=== PATIENT | female | born 2000 | race Caucasian/White ===

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

== ENCOUNTER 2018-12-31 07:07 | Emergency (ER) | payer OTHER ==
--- OUTSIDE RECORDS SUMMARY | 2018-12-31 07:15 | XMS REPORT | Continuity of Care Document ---
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 Coach Vangie Núñez CSW Care Team Information Trampoline Team Coach [phone] Problems Active Problems Provider Date Migraine without aura, not refractory Elenita Plascencia MD Onset: 11/25/2018 Primary dysmenorrhea Elenita Plascencia MD Onset: 11/25/2018 Social History Type Date Description Comments Sex Unknown ETOH Use Occasionally consumes alcohol Tobacco Use Start: Unknown Patient has never smoked Recreational Drug Use Denies Drug Use Smoking Status Reviewed: 10/27/18 Patient has never smoked Allergies, Adverse Reactions, Alerts Description No Known Drug Allergies Medications Active Medications SIG Qnty Indications Ordering Provider Date Bupropion 1 by mouth every 60tabs F43.23 Elenita Plascencia, 11/03/2018 Hydrochloride ER (XL) day in the MD morning for 1 150mg Tablets ER 24HR week then 2 po daily Naproxen Take 1 Tablet By 60tabs N94.4 Elenita Plascenica, 03/15/2017 500mg Tablets Mouth Twice A MD Day With Food During Menses Cryselle-28 1 by mouth every 3packs Z30.09 Elenita Plascencia, 11/05/2012 0.3-30mg-mcg day MD Tablets History Medications Escitalopram Oxalate 1 by mouth 30tabs F43.23 Elenita Plascencia, 2018 - every day MD 11/03/2018 10mg Tablets Medications Administered in Office Medication SIG Qnty Indications Ordering Provider Date PPD Elenita Plascencia MD 11/25/2018 Injection Immunizations CPT Code Status Date Vaccine Reaction Lot # [id number] Given 10/07/2018 Influenza Virus Vaccine,Quadrivalent,Split,Preserv Free, 0.5mL,Im [address] Given 03/15/2017 Meningococcal B(Bexsero)protn otrMembran [id number] Vesicle Vccn 2 [place] [address] Given 12/07/2016 Influenza Vac, Quadrivalent, Split, 0.5mL [id number] Dosage, Im Use 86071 Given 12/07/2016 Meningococcal B(Bexsero)protn otrMembran [id number] Vesicle Vccn 2 [place] [address] Given 01/12/2016 Influenza Vac, Quadrivalent, Split, 0.5mL Dosage, Im Use 02497 Given 01/10/2016 Menactra/Menveo Meningococcal Vaccine nysiis Q2038 Given 11/23/2013 Fluzone Trivalent Immunization [id number] Q2038 Given 11/27/2012 Fluzone Trivalent Immunization [id number] Q2038 Given 10/29/2011 Fluzone Trivalent Immunization [id number] 19988 Given 12/22/2009 Afluria Or Fluvirin Flu Vac Intramuscular [id number] 25798 Given 07/22/2009 Menactra/Menveo Meningococcal Vaccine [id number] 24271 Given 07/22/2009 Tdap (Adacel) Ages 7 And Above Only [id number] 95719 Given 11/12/2008 Afluria Or Fluvirin Flu Vac Intramuscular [id number] 30713 Given 09/08/2008 HPV Vaccine (Gardasil) 3 Dose Schedule [id number] 44560 Given 07/12/2008 HPV Vaccine (Gardasil) 3 Dose Schedule [id number] 57488 Given 04/28/2008 HPV Vaccine (Gardasil) 3 Dose Schedule [id number] 99917 Given 07/12/2006 Varicella (Chicken Pox) Immunization [id number] 66012 Given 07/28/2003 IPV / Poliomyelitis Immunization 24413 Given 07/28/2003 MMR Virus Immunization 29546 Given 07/28/2003 DTaP Immunization 6 Yrs & Younger 80773 Given 11/24/2001 IPV / Poliomyelitis Immunization 60885 Given 10/06/1999 MMR Virus Immunization 40479 Given 10/06/1999 DTaP And Hib Immunization 23652 Given 06/08/1999 Varicella (Chicken Pox) Immunization 09603 Given 03/09/1999 Hepatitis B Vac Ped/Adolescent 3 Dose Schedule 82255 Given 1998 DTaP Immunization 6 Yrs & Younger 95942 Given 1998 IPV / Poliomyelitis Immunization 33141 Given 1998 DTaP Immunization 6 Yrs & Younger 80391 Given 1998 Hib ACTHiB Vaccine 4 Dose Schedule 32956 Given 1998 IPV / Poliomyelitis Immunization 06160 Given 1998 DTaP Immunization 6 Yrs & Younger 82387 Given 1998 Rotavirus, Rotateq, Tetravalent Live, Oral Use 3 [place] [address] Given 1998 Hib ACTHiB Vaccine 4 Dose Schedule 24633 Given 1998 Hepatitis B Vac Ped/Adolescent 3 Dose Schedule 24344 Given 1998 Hepatitis B Vac Ped/Adolescent 3 Dose Schedule [id number] Refused 03/21/2018 Flu Vaccine [id number] Refused 12/22/2014 Influenza Vac, Quadrivalent, Split, 0.5mL Dosage, Im Use Vital Signs Date Vital Result Comment 11/25/2018 10:07am Weight 152.00 lb Heart Rate 78 /min BP Systolic 122 mmHg BP Diastolic 72 mmHg BP Systolic Recheck 120 mmHg BP Diastolic Recheck 70 mmHg Respiratory Rate 18 /min Height 65 inches 5'5" BMI (Body Mass Index) 25.3 kg/m2 11/03/2018 11:36am Weight 159.00 lb Heart Rate 92 /min BP Systolic 138 mmHg BP Diastolic 72 mmHg Respiratory Rate 16 /min Height 65 inches 5'5" BMI (Body Mass Index) 26.5 kg/m2 Results Test Date Facility Test Result H/L Range Note CBC with Auto Diff-fcmg 10/27/2018 [facility] WBC 7.8 K/uL 4.1-11.0 RBC 5.64 M/uL High 4.00-5.40 Hemoglobin 15.9 gm/dL 12.0-16.0 Hematocrit 47.2 % High 36.0-47.0 MCV 83.8 fL 80.0-97.0 MCH 28.3 pg 27.0-32.0 MCHC 33.8 g/dL 32.0-36.0 RDW 13.8 % 11.5-14.5 PLT Count 243 K/ul 140-400 MPV 7.5 FL 7.1-10.7 Neutrophil 52.1 % 35.0-75.0 Lymphocyte 37.6 % 16.0-52.0 Monocyte 9.5 % 2.0-10.0 Eosinophil 0.5 % 0.0-5.0 Basophil 0.3 % 0.0-4.0 Abs Neutrophils 4.1 K/uL 2.1-8.0 Abs Lymphocytes 2.9 K/uL 0.8-5.5 Abs Monocytes 0.7 K/uL 0.1-1.0 Abs Eosinophils 0.0 K/uL 0.0-0.5 Abs Basophils 0.0 K/uL 0.0-0.3 Comprehensive Met Panel-[facility] 10/27/2018 [facility] Sodium 140 mmol/L 135- 146 1 Potassium 3.6 mmol/L 3.5-5.2 Chloride# 101 mmol/L 97-110 2 Carbon Dioxide 25 mmol/L 24-34 Calcium 9.9 mg/dL 8.5-10.5 3 Glucose 94 mg/dL 70-105 BUN 14 mg/dL 6-26 Creatinine 0.8 mg/dL 0.5-1.4 Total Protein 8.1 g/dL High 6.0-8.0 Albumin 5.0 g/dL High 3.6-4.9 Globulin 3.1 g/dL 2.0-3.5 A/G Ratio 1.6 Ratio 1.0-2.2 Total Bilirubin 0.7 mg/dL 0.1-1.3 Alkaline Phosphatase 78 U/L 24-140 Alt 29 U/L 3-42 Ast 26 U/L 8-42 Anion Gap 14 mmol/L 5-15 4 Female Egfr 100 >60 5 Male Egfr 126 >60 6 Laboratory test finding 10/27/2018 [facility] Gamma gt 24 U/L (15-95) 7 TSH 0.63 uIU/mL 0.35-4.94 Vitamin B12 408 pg/mL 180-914 Vitamin D 25 Hydroxy 50 ng/mL 30-100 8 1 Updated reference range on new analyzer 2 Updated reference range on new analyzer 3 Updated reference range 06-11-2018 4 Updated Reference Range 5 Concerning GFR Guidelines for Americans: Normal function or mild renal disease, if clinically at risk: >/= 60 mL/min Moderately decreased: 30-59 Severely decreased: 15-29 Renal failure: <15 There is reduced accuracy above 60ml/min/1.73 m squared, but the numeric value may be clinically useful in the near 60 range 6 Concerning GFR Guidelines: Normal function or mild renal disease, if clinically at risk: >/= 60 mL/min Moderately decreased: 30-59 Severely decreased: 15-29 Renal failure: <15 There is reduced accuracy above 60ml/min/1.73 m squared, but the numeric value may be clinically useful in the near 60 range Glomerular Filtration Rate (GFR) is estimated based on the CKD-EPI equation, which assumes a steady state for creatinine as recommended by the National Kidney Disease Education Program in conjunction with the National Institutes of Health and the National Kidney Foundation. Clinical conditions in which it may be necessary to measure GFR by using clearance methods include extremes of age and body size, severe malnutrition or obesity, diseases of skeletal muscle, paraplegia or quadriplegia, vegetarian diet, rapidly changing kidney function, and calculation of the dose of potentially toxic drugs that are excreted by the kidneys. 7 Unless otherwise specified, testing performed by [facility] [address] [place] [id number] Clinical Guidelines for recommended serum 25(OH)Vitamin D Deficient at less than 20 ng/mL Insufficient at 20 to <30 ng/mL Sufficient at 30-100 ng/mL Toxicity at greater than 100 ng/mL Procedures Date Code Description Status 11/25/2018 43103 Visual Screening Test Completed 11/25/2018 66489 Admin Of Inj (Therapeutic Phrophylactic Or Diagnostic Subq Completed Inj 11/03/2018 18038 Brief Emotional/Behav Assessment W/ Scoring Doc Per Completed Standard Inst Medical Devices Description No Information Available Encounters Type Date Location Provider Dx Diagnosis Office Visit 11/03/2018 [facility] Elenita Plascencia F43.23 Adjustment disorder 11:30a MD with mixed anxiety and depressed mood Office Visit 10/27/2018 [facility] Elenita Plascencia F43.23 Adjustment disorder 2:00p with mixed anxiety and depressed mood Assessments Date Code Description Provider 11/25/2018 Z02.89 Encounter for other administrative Elenita Placsencia MD examinations 11/25/2018 F43.23 Adjustment disorder with mixed anxiety and Elenita Plascencia MD depressed mood 11/25/2018 G43.009 Migraine without aura, not intractable, Elenita Plascencia MD without status migra 11/25/2018 N94.4 Primary dysmenorrhea Elenita Plascencia MD 11/25/2018 Z11.1 Encounter for screening for respiratory Elenita Plascencia MD tuberculosis 11/03/2018 F43.23 Adjustment disorder with mixed anxiety and Elenita Plascencia MD depressed mood 10/27/2018 F43.23 Adjustment disorder with mixed anxiety and Elenita Plascencia MD depressed mood 10/27/2018 F43.23 Adjustment disorder with mixed anxiety and Elenita Plascencia MD depressed mood 10/27/2018 E55.9 Vitamin D deficiency, unspecified Elenita Plascencia MD 10/27/2018 F43.23 Adjustment disorder with mixed anxiety and Schedule, Laboratory depressed mood 10/27/2018 E55.9 Vitamin D deficiency, unspecified Schedule, Laboratory 10/27/2018 F43.23 Adjustment disorder with mixed anxiety and [facility] depressed mood 10/27/2018 E55.9 Vitamin D deficiency, unspecified [facility] Plan of Treatment Future Appointment(s):11/27/2018 2:30 pm - Schedule, Nurses at [facility]12/01/2018 10 :45 am - Elenita Plascencia MD at [facility]04/14/2019 2:00 pm - Elenita Plascencia MD at [facility]11/25/2018 - Elenita Plascencia MDZ02.89 Encounter for other administrative examinationsComments:college forms reviewed in detailonce ppd is done will copy all to chart. no obvious concerns found to prohibit participation in [facility] schoolFollow up:ppd reading in 48 hours and complete/ copy forms ; next visit as muhbvfcW27.23 Adjustment disorder with mixed anxiety and depressed moodG43.009 Migraine without aura, not intractable, without status gunshO01.4 Primary tjrijcbqysorA02.1 Encounter for screening for respiratory tuberculosisComments:PPD placed by nurse, to read in 48-72 hours. complete forms then Functional Status Description No Information Available Mental Status Description No Information Available Referrals Refer to Reason for Referral Status Appt Date Vangie Núñez CSW adjustment issues , boyfriend, college Scheduled 2018 issues. suicidal thought no plan PATIENT WILL CALL TO MAKE HER OWN APPOINTMENT/ GAVE HER REFERRAL PAPER & MAILED REFERRAL TO COUNSELER - NO FAX NUMBER KW 10/27 [place], [place] [phone]
--- OUTSIDE RECORDS SUMMARY | 2018-12-31 07:15 | XMS REPORT | Continuity of Care Document ---
:1998 External Reference #:[id number] Author Name Elenita Plascencia MD Address [facility] [place] [address] Care Team Providers Name Role Phone Jael Alexandra MD - Family Medicine Care Team Information Can Tester Vangie Núñez CSW Care Team Information Can Tester [phone] Problems Description No Active Problems Social History Type Date Description Comments Sex [...] Take 1 Tablet By 60tabs N94.4 Elenita Plascencia, 03/15/2017 500mg Tablets Mouth Twice A MD Day With Food During Menses Cryselle-28 1 by mouth every 3packs Z30.09 Elenita Plascencia, 11/05/2012 0.3-30mg-mcg day MD Tablets History Medications Escitalopram Oxalate 1 by mouth 30tabs F43.23 Elenita Plascencia, 2018 - every day MD 11/03/2018 10mg Tablets Immunizations CPT Code Status Date Vaccine Reaction Lot # [id number] Given 10/07/2018 Influenza Virus Vaccine,Quadrivalent,Split,Preserv Free, 0.5mL,Im 62405 Given 03/15/2017 Meningococcal B(Bexsero)protn otrMembran [id number] Vesicle Vccn 2 [place] 88594 Given 12/07/2016 Influenza Vac, Quadrivalent, Split, 0.5mL [id number] Dosage, [place] Use 86214 Given 12/07/2016 Meningococcal B(Bexsero)protn otrMembran [id number] Vesicle Vccn 2 dose sche 09568 Given 01/12/2016 Influenza Vac, Quadrivalent, Split, 0.5mL Dosage, Im Use 08165 Given 01/10/2016 Menactra/Menveo Meningococcal Vaccine nysiis Q2038 Given 11/23/2013 Fluzone Trivalent Immunization [id number] Q2038 Given 11/27/2012 Fluzone Trivalent Immunization [id number] Q2038 Given 10/29/2011 Fluzone Trivalent Immunization [id number] 77068 Given 12/22/2009 Afluria Or Fluvirin Flu Vac Intramuscular [id number] 59359 Given 07/22/2009 Menactra/Menveo Meningococcal Vaccine [id number] 69278 Given 07/22/2009 Tdap (Adacel) Ages 7 And Above Only [id number] 70540 Given 11/12/2008 Afluria Or Fluvirin Flu Vac Intramuscular [id number] 60506 Given 09/08/2008 HPV Vaccine (Gardasil) 3 Dose Schedule [id number] 71419 Given 07/12/2008 HPV Vaccine (Gardasil) 3 Dose Schedule [id number] 13144 Given 04/28/2008 HPV Vaccine (Gardasil) 3 Dose Schedule [id number] 23452 Given 07/12/2006 Varicella (Chicken Pox) Immunization [id number] 73964 Given 07/28/2003 IPV / Poliomyelitis Immunization 86387 Given 07/28/2003 MMR Virus Immunization 45200 Given 07/28/2003 DTaP Immunization 6 Yrs & Younger 99765 Given 11/24/2001 IPV / Poliomyelitis Immunization 36226 Given 10/06/1999 MMR Virus Immunization 93040 Given 10/06/1999 DTaP And Hib Immunization 78428 Given 06/08/1999 Varicella (Chicken Pox) Immunization 17356 Given 03/09/1999 Hepatitis B Vac Ped/Adolescent 3 Dose Schedule 95841 Given 1998 DTaP Immunization 6 Yrs & Younger 40593 Given 1998 IPV / Poliomyelitis Immunization 68761 Given 1998 DTaP Immunization 6 Yrs & Younger 94230 Given 1998 Hib ACTHiB Vaccine 4 Dose Schedule 69782 Given 1998 IPV / Poliomyelitis Immunization 63607 Given 1998 DTaP Immunization 6 Yrs & Younger 61507 Given 1998 Rotavirus, Rotateq, Tetravalent Live, Oral Use 3 [place] [address] Given 1998 Hib ACTHiB Vaccine 4 Dose Schedule 42228 Given 1998 Hepatitis B Vac Ped/Adolescent 3 Dose Schedule 09901 Given 1998 Hepatitis B Vac Ped/Adolescent 3 Dose Schedule Q2039 Refused 03/21/2018 Flu Vaccine NOS 92259 Refused 12/22/2014 Influenza Vac, Quadrivalent, Split, 0.5mL Dosage, Im Use Vital Signs Date Vital Result Comment 11/03/2018 11:36am Weight 159.00 lb Heart Rate 92 /min BP Systolic 138 mmHg BP Diastolic 72 mmHg Respiratory Rate 16 /min Height 65 inches 5'5" BMI (Body Mass Index) 26.5 kg/m2 10/27/2018 2:08pm Weight 162.00 lb Heart Rate 90 /min BP Systolic 136 mmHg BP Diastolic 88 mmHg Respiratory Rate 16 /min Height 65 inches 5'5" BMI (Body Mass Index) 27.0 kg/m2 Results Test Date Facility Test Result H/L Range Note CBC with Auto Diff-fcmg 10/27/2018 [facility] 7.8 K/uL 4.1-11.0 RBC 5.64 M/uL [...] Unless otherwise specified, testing performed by [facility] [address] [place] [id number] 8 Clinical Guidelines for recommended serum 25(OH)Vitamin D Deficient at less than 20 ng/mL Insufficient at 20 to <30 ng/mL Sufficient at 30-100 ng/mL Toxicity at greater than 100 ng/mL Procedures Date Code Description Status 11/03/2018 13369 Brief Emotional/Behav Assessment W/ Scoring Doc Per Completed Standard Inst Medical Devices Description No Information Available Encounters Type Date Location Provider Dx Diagnosis Office Visit 10/27/2018 [facility] Elenita Plascencia, F43.23 Adjustment disorder 2:00p MD with mixed anxiety and depressed mood Assessments Date Code Description Provider 11/03/2018 F43.23 Adjustment disorder with mixed anxiety [...] [facility] Plan of Treatment Future Appointment(s):12/01/2018 10:45 am - Elenita Plascencia MD at [facility]2019 2:00 pm - Elenita [facility]ascencia MD at [facility]11/03/2018 - Elenita Plascencia MDF43.23 Adjustment disorder with mixed anxiety and depressed moodNew Medication :Bupropion Hydrochloride ER (XL) 150 mg - 1 by mouth every day in the morning for 1 week then 2 po dailyComments:Adjustment reaction with anxiety and depression. FITZ 12, improved to now 5 phq9 = 21 improved to 7She is having tremor side effect to escitalopram. Recommend stop escitalopram. Discussed not taking any meds at all, as she improved quickly, but she want something to help manage her sxs . Stay off the escitalopram until tremor is gone, skip at least 1 day. Start bupropion 150mg daily for 1 week then 2 po daily. Cautioned risks for lowering seizure threshold and arrhythmia, although rare. no further suicidal thoughts. continue counselling Be sure to take care of yourself, stick with a bedtime and get up time, no naps, healthy eating, routine exercise, good hydration. call in 2 weeks with update,recheck in 3-4 weeksFollow up:next visit in 3-4 weeks oc15 fu depression and anxiety, phq9 and fitz Functional Status Description No Information Available Mental Status Description No Information Available Referrals Refer to Reason for Referral Status Appt Date Vangie Núñez, EXECUTIVE DIRECTOR OF NURSING adjustment issues , boyfriend, college Scheduled 2018 issues. suicidal thought no plan PATIENT WILL CALL TO MAKE HER OWN APPOINTMENT/ GAVE HER REFERRAL PAPER & MAILED REFERRAL TO COUNSELER - NO FAX NUMBER KW 10/27 [place], [place] [phone]
--- OUTSIDE RECORDS SUMMARY | 2018-12-31 07:15 | XMS REPORT | Continuity of Care Document ---
:1998 External Reference #:[id number] Author Name Elenita Plascencia MD Address [address] [place] [address] Care Team Providers Name Role Phone Jael Alexandra MD - Family Medicine Care Team Information Shuttle Bus Driver Vangie Núñez CSW Care Team Information Shuttle Bus Driver [phone] Problems Active Problems Provider Date Migraine without aura, not refractory Elenita Plascencia MD Onset: 11/25/2018 Primary dysmenorrhea lEenita Plascencia MD Onset: 11/25/2018 Social History Type Date Description Comments Sex Unknown ETOH Use Occasionally consumes alcohol Tobacco Use Start: Unknown Patient has never smoked Recreational Drug Use Denies Drug Use Smoking Status Reviewed: 10/27/18 Patient has never smoked Allergies, Adverse Reactions, Alerts Active Allergies Reaction Severity Comments Date Escitalopram tremor Moderate 12/10/2018 Inactive Allergies NKDA 05/10/2003 Medications Active Medications SIG Qnty Indications Ordering Provider Date Naproxen Take 1 Tablet By 60tabs N94.4 Elenita Plascencia, 03/15/2017 500mg Tablets Mouth Twice A MD Day With Food During Menses Cryselle-28 1 by mouth every 3packs Z30.09 Elenita Plascencia, 11/05/2012 day 0.3-30mg-mcg Tablets History Medications Bupropion 1 by mouth 180tabs F43.23 Elenita Plascencia, 11/03/2018 - Hydrochloride ER (XL) every day in MD 12/10/2018 the morning 150mg Tablets ER 24HR for 1 week then 2 po daily Escitalopram Oxalate 1 by mouth 30tabs F43.23 Elenita Plascencia, 2018 - every day MD 11/03/2018 10mg Tablets Medications Administered in Office Medication SIG Qnty Indications Ordering Provider Date PPD Plascencia, Elenita, MD 11/25/2018 Injection Immunizations CPT Code Status Date Vaccine Reaction Lot # [id number] Given 10/07/2018 Influenza Virus Vaccine,Quadrivalent,Split,Preserv Free, 0.5mL,Im 38261 Given 03/15/2017 Meningococcal B(Bexsero)protn otrMembran [id number] Vesicle Vccn 2 [place] [address] Given 12/07/2016 Influenza Vac, Quadrivalent, Split, 0.5mL [id number] Dosage, Im Use 42076 Given 12/07/2016 Meningococcal B(Bexsero)protn otrMembran [id number] Vesicle Vccn 2 [place] sche 13850 Given 01/12/2016 Influenza Vac, Quadrivalent, Split, 0.5mL Dosage, Im Use 91761 Given 01/10/2016 Menactra/Menveo Meningococcal Vaccine nysiis Q2038 Given 11/23/2013 Fluzone Trivalent Immunization [id number] Q2038 Given 11/27/2012 Fluzone Trivalent Immunization [id number] Q2038 Given 10/29/2011 Fluzone Trivalent Immunization [id number] 56232 Given 12/22/2009 Afluria Or Fluvirin Flu Vac Intramuscular [id number] 47697 Given 07/22/2009 Menactra/Menveo Meningococcal Vaccine [id number] 85484 Given 07/22/2009 Tdap (Adacel) Ages 7 And Above Only [id number] 26035 Given 11/12/2008 Afluria Or Fluvirin Flu Vac Intramuscular [id number] 46748 Given 09/08/2008 HPV Vaccine (Gardasil) 3 Dose Schedule [id number] 02874 Given 07/12/2008 HPV Vaccine (Gardasil) 3 Dose Schedule [id number] 72896 Given 04/28/2008 HPV Vaccine (Gardasil) 3 Dose Schedule [id number] 66473 Given 07/12/2006 Varicella (Chicken Pox) Immunization [id number] 17375 Given 07/28/2003 IPV / Poliomyelitis Immunization 48571 Given 07/28/2003 MMR Virus Immunization 21232 Given 07/28/2003 DTaP Immunization 6 Yrs & Younger 40299 Given 11/24/2001 IPV / Poliomyelitis Immunization 95027 Given 10/06/1999 MMR Virus Immunization 73719 Given 10/06/1999 DTaP And Hib Immunization 85270 Given 06/08/1999 Varicella (Chicken Pox) Immunization 20274 Given 03/09/1999 Hepatitis B Vac Ped/Adolescent 3 Dose Schedule 31418 Given 1998 DTaP Immunization 6 Yrs & Younger 43373 Given 1998 IPV / Poliomyelitis Immunization 13400 Given 1998 DTaP Immunization 6 Yrs & Younger 75664 Given 1998 Hib ACTHiB Vaccine 4 Dose Schedule 01664 Given 1998 IPV / Poliomyelitis Immunization 00008 Given 1998 DTaP Immunization 6 Yrs & Younger 85913 Given 1998 Rotavirus, Rotateq, Tetravalent Live, Oral Use 3 [place] [address] Given 1998 Hib ACTHiB Vaccine 4 Dose Schedule 95684 Given 1998 Hepatitis B Vac Ped/Adolescent 3 Dose Schedule 49057 Given 1998 Hepatitis B Vac Ped/Adolescent 3 Dose Schedule Q2039 Refused 03/21/2018 Flu Vaccine NOS 56904 Refused 12/22/2014 Influenza Vac, Quadrivalent, Split, 0.5mL Dosage, Im Use Vital Signs Date Vital Result Comment 12/10/2018 9:27am Weight 151.00 lb Heart Rate 82 /min BP Systolic 130 mmHg BP Diastolic 80 mmHg Respiratory Rate 16 /min Height 65 inches 5'5" BMI (Body Mass Index) 25.1 kg/m2 11/25/2018 10:07am Weight 152.00 lb Heart Rate 78 /min BP Systolic 122 mmHg BP Diastolic 72 mmHg BP Systolic Recheck 120 mmHg BP Diastolic Recheck 70 mmHg Respiratory Rate 18 /min Height 65 inches 5'5" BMI (Body Mass Index) 25.3 kg/m2 Results Test Acquired Date Facility Test Result H/L Range Note CBC with Auto Diff-fcmg 10/27/2018 [facility] 7.8 K/uL 4.1-11.0 RBC 5.64 M/uL [...] 0.0 K/uL 0.0-0.3 Comprehensive Met Panel[facility] 10/27/2018 [facility] Sodium 140 mmol/L 135- 146 1 Potassium [...] Unless otherwise specified, testing performed by [facility] [address] [place] [address] 8 Clinical Guidelines for recommended serum 25(OH)Vitamin D Deficient at less than 20 ng/mL Insufficient at 20 to <30 ng/mL Sufficient at 30-100 ng/mL Toxicity at greater than 100 ng/mL Procedures Date Code Description Status 12/10/2018 39165 Brief Emotional/Behav Assessment W/ Scoring Doc Per Completed Standard Inst 11/25/2018 94781 Visual Screening Test Completed 11/25/2018 04532 Admin Of Inj (Therapeutic Phrophylactic Or Diagnostic Subq Completed Inj 11/03/2018 60306 Brief Emotional/Behav Assessment W/ Scoring Doc Per Completed Standard Inst Medical Devices Description No Information Available Encounters Type Date Location Provider Dx Diagnosis Office Visit 11/27/2018 [facility] Camelia, Nurses Z11.1 Encounter for screening 2:30p for respiratory tuberculosis Office Visit 11/25/2018 [facility] Elenita Plascencia, Z02.89 Encounter for other 10:00a administrative examinations F43.23 Adjustment disorder with mixed anxiety and depressed mood G43.009 Migraine w/o aura, not intractable, w/o status migrainosus N94.4 Primary dysmenorrhea Z11.1 Encounter for screening for respiratory tuberculosis Office Visit 11/03/2018 11:30a [facility] Elenita Plascencia MD F43.23 Adjustment disorder with mixed anxiety and depressed mood Office Visit 10/27/2018 2:00p [facility] Elenita Plascencia MD F43.23 Adjustment disorder with mixed anxiety and depressed mood Assessments Date Code Description Provider 12/10/2018 F43.23 Adjustment disorder with mixed anxiety and Elenita Plascencia MD depressed mood 11/27/2018 Z11.1 Encounter for screening for respiratory Elenita Plascencia MD tuberculosis 11/27/2018 Z11.1 Encounter for screening for respiratory Schedule, Nurses tuberculosis 11/25/2018 Z02.89 Encounter for other administrative Elenita Plascencia MD examinations 11/25/2018 F43.23 Adjustment disorder with [...] [facility] Plan of Treatment Future Appointment(s):04/14/2019 2:00 pm - Elenita Plascencia MD at [facility]2018 - Elenita Plascencia MDF43.23 Adjustment disorder with mixed anxiety and depressed moodComments:Adjustment reaction with anxiety and depression. FITZ was 12, improved to now 5, staying at 5 phq9 = 21 improved to 7 last visit now 4. she feels depression is resolved. off escitalopram due to tremorShe is concerned about ongoing anxiety. I recommend she return to counselling for several sessions to do cognitive and behavioral therapy to identify triggers and work on mindfulness practice. Discussed mindfulness practice, relaxation and meditation. Bonnie: Calm, also look for free apps.Discussed bupropion , she doesn'tn want to take meds so will stop. no further suicidal thoughts. Be sure to take care of yourself, stick with a bedtime and get up time, no naps, healthy eating, routine exercise, good hydration. call in 2 weeks with update, mindfulness practice. recheck as planned HO givenFollow up:next visti as planned Functional Status Description No Information Available Mental Status Description No Information Available Referrals Refer to Reason for Referral Status Appt Date Vangie Núñez CSW adjustment issues , boyfriend, college Scheduled 2018 issues. suicidal thought no plan PATIENT WILL CALL TO MAKE HER OWN APPOINTMENT/ GAVE HER REFERRAL PAPER & MAILED REFERRAL TO COUNSELER - NO FAX NUMBER KW 10/27 [place], [place] [phone]
--- OUTSIDE RECORDS SUMMARY | 2018-12-31 07:15 | XMS REPORT | Continuity of Care Document ---
:1998 External Reference #:[id number] Author Name Elenita Plascencia MD Address [address] [place] [id number] Care Team Providers Name Role Phone Jael Alexandra MD - Family Medicine Care Team Information Supervisor [employer] [phone] Vangie Núñez CSW Care Team Information Supervisor [employer] [phone] Problems Active Problems Provider Date Migraine without [...] Medications SIG Qnty Indications Ordering Provider Date Amoxicillin 1 by mouth twice 20tabs H66.41 Elenita Plascencia, 12/26/2018 875mg a day Tablets Naproxen Take 1 Tablet By 60tabs N94.4 [...] F43.23 Elenita Plascencia, 2018 - every day 11/03/2018 10mg Tablets Medications Administered in Office Medication SIG Qnty Indications Ordering Provider Date PPD Elenita Plascencia MD 11/25/2018 Injection Immunizations CPT Code Status Date Vaccine Reaction Lot # [id number] Given 10/07/2018 Influenza Virus Vaccine,Quadrivalent,Split,Preserv Free, 0.5mL,Im 77633 Given 03/15/2017 Meningococcal B(Bexsero)protn otrMembran [id number] Vesicle Vccn 2 [place] 46545 Given 12/07/2016 Influenza Vac, Quadrivalent, Split, 0.5mL [id number] Dosage, [place] Use 68146 Given 12/07/2016 Meningococcal B(Bexsero)protn otrMembran [id number] Vesicle Vccn 2 dose sche 64428 Given 01/12/2016 Influenza Vac, Quadrivalent, Split, 0.5mL Dosage, [place] Use 44233 Given 01/10/2016 Menactra/Menveo Meningococcal Vaccine nysiis Q2038 Given 11/23/2013 Fluzone Trivalent Immunization [id number] Q2038 Given 11/27/2012 Fluzone Trivalent Immunization [id number] Q2038 Given 10/29/2011 Fluzone Trivalent Immunization [id number] 41013 Given 12/22/2009 Afluria Or Fluvirin Flu Vac Intramuscular [id number] 00026 Given 07/22/2009 Menactra/Menveo Meningococcal Vaccine [id number] 13284 Given 07/22/2009 Tdap (Adacel) Ages 7 And Above Only [id number] 69936 Given 11/12/2008 Afluria Or Fluvirin Flu Vac Intramuscular [id number] 89245 Given 09/08/2008 HPV Vaccine (Gardasil) 3 Dose Schedule [id number] 95619 Given 07/12/2008 HPV Vaccine (Gardasil) 3 Dose Schedule [id number] 07842 Given 04/28/2008 HPV Vaccine (Gardasil) 3 Dose Schedule [id number] 37759 Given 07/12/2006 Varicella (Chicken Pox) Immunization [id number] 54686 Given 07/28/2003 IPV / Poliomyelitis Immunization 90170 Given 07/28/2003 MMR Virus Immunization 40928 Given 07/28/2003 DTaP Immunization 6 Yrs & Younger 92409 Given 11/24/2001 IPV / Poliomyelitis Immunization 17708 Given 10/06/1999 MMR Virus Immunization 64722 Given 10/06/1999 DTaP And Hib Immunization 22729 Given 06/08/1999 Varicella (Chicken Pox) Immunization 26486 Given 03/09/1999 Hepatitis B Vac Ped/Adolescent 3 Dose Schedule 36585 Given 1998 DTaP Immunization 6 Yrs & Younger 06944 Given 1998 IPV / Poliomyelitis Immunization 20308 Given 1998 DTaP Immunization 6 Yrs & Younger 08394 Given 1998 Hib ACTHiB Vaccine 4 Dose Schedule 24059 Given 1998 IPV / Poliomyelitis Immunization 49513 Given 1998 DTaP Immunization 6 Yrs & Younger 68937 Given 1998 Rotavirus, Rotateq, Tetravalent Live, Oral Use 3 [place] [address] Given 1998 Hib ACTHiB Vaccine 4 Dose Schedule 32748 Given 1998 Hepatitis B Vac Ped/Adolescent 3 Dose Schedule 03273 Given 1998 Hepatitis B Vac Ped/Adolescent 3 Dose Schedule Q2039 Refused 03/21/2018 Flu Vaccine NOS 81885 Refused 12/22/2014 Influenza Vac, Quadrivalent, Split, 0.5mL Dosage, Im Use Vital Signs Date Vital Result Comment 12/26/2018 10:16am Body Temperature 97.4 F Weight 152.00 lb Heart Rate 92 /min BP Systolic 128 mmHg BP Diastolic 94 mmHg Respiratory Rate 16 /min Height 65 inches 5'5" O2 % BldC Oximetry 98 % BMI (Body Mass Index) 25.3 kg/m2 12/10/2018 9:27am Weight 151.00 lb Heart Rate 82 /min BP Systolic 130 mmHg BP Diastolic 80 mmHg Respiratory Rate 16 /min Height 65 inches 5'5" BMI (Body Mass Index) 25.1 kg/m2 Results Test Acquired Date Facility Test [...] Unless otherwise specified, testing performed by [facility] [address] [place] [address] 8 Clinical Guidelines for recommended serum 25(OH)Vitamin D Deficient at less than 20 ng/mL Insufficient at 20 to <30 ng/mL Sufficient at 30-100 ng/mL Toxicity at greater than 100 ng/mL Procedures Date Code Description Status 12/26/2018 23910 Measure Blood Oxygen Level Single Determination Completed 12/10/2018 90729 Brief Emotional/Behav Assessment W/ Scoring Doc Per Completed Standard Inst 11/25/2018 25588 Visual Screening Test Completed 11/25/2018 55469 Admin Of Inj (Therapeutic Phrophylactic Or Diagnostic Subq Completed Inj 11/03/2018 18693 Brief Emotional/Behav Assessment W/ Scoring Doc Per Completed Standard Inst Medical Devices Description No Information Available Encounters Type Date Location Provider Dx Diagnosis Office Visit 12/10/2018 [facility] Elenita Plascencia, F43.23 Adjustment disorder with 9:00a mixed anxiety and depressed mood Office Visit 11/27/2018 [facility] Schedule, Nurses Z11.1 Encounter for screening 2:30p for respiratory tuberculosis Office Visit 11/25/2018 [facility] Elenita Plascencia, Z02.89 Encounter for other 10:00a MD administrative examinations F43.23 Adjustment disorder with mixed anxiety and depressed mood G43.009 Migraine w/o aura, not intractable, w/o status migrainosus N94.4 Primary dysmenorrhea Z11.1 Encounter for screening for respiratory tuberculosis Office Visit 11/03/2018 11:30a [facility] Elenita Plascencia MD F43.23 Adjustment disorder with mixed anxiety and depressed mood Office Visit 10/27/2018 2:00p [facility] Elenita Plascencia MD F43.23 Adjustment disorder with mixed anxiety and depressed mood Assessments Date Code Description Provider 12/26/2018 J06.9 Acute upper respiratory infection, Elenita Plascencia MD unspecified 12/26/2018 H66.41 Suppurative otitis media, unspecified, RIGHT Elenita Plascencia MD ear 12/10/2018 F43.23 Adjustment disorder with mixed anxiety [...] 2:00 pm - Elenita Plascencia MD at [facility]2018 - Elenita Plascencia MDJ06.9 Acute upper respiratory infection, unspecifiedComments:URI--Explained most likely cause is a virus that won't respond to antibiotics. Can expect cough to worsen before it improves, and whole illness course may last up to 3-4 weeks. Please call for increased Shortness of breath, temp >=101, increased cough that's productive of colored sputum, chest pain, or any other concerns that would suggest bacterial chest infection. If you have increasing face pain with nasal discharge that is colored or bloody, we need to consider sinus infection. Please call for any concerning symptoms. Try using a vaporizer at night to help with mouth dryness and sore throat. May try OTC meds to help relieve symptoms such as Robitussin May use saline rinses twice dailyto help as well.Follow up:followup as cxqyglV61.41 Suppurative otitis media, unspecified, RIGHT earNew Medication: Amoxicillin 875 mg - 1 by mouth twice a dayComments:acute otitistreat with antibiotics and pain relieversuse saline flushesshould be better in a few days, if not calldiscussed if viral antibiotics may not make a difference as they won' t treat viral infection, there are enough signs and sxs to suggest bacterial infection nowtake a probiotic daily/eat yogurt use condoms if sexually active for this pill cycle as abx can effect pill's preventioncall prn persistent fever, lethargy, worse pain, drainage, concerns. Functional Status Description No Information Available Mental Status Description No Information Available Referrals Refer to Reason for Referral Status Appt Date Vangie Núñez CSW adjustment issues , boyfriend, college Scheduled 2018 issues. suicidal thought no plan PATIENT WILL CALL TO MAKE HER OWN APPOINTMENT/ GAVE HER REFERRAL PAPER & MAILED REFERRAL TO COUNSELER - NO FAX NUMBER KW 10/27 [place], [place] [phone]
[2018-12-31 07:19] VITALS: BP 128/57
--- NOTE | 2018-12-31 07:43 | UC ---
UC General HPI - HPI Summary HPI Summary: 18-year-old female comes in with a chief complaint of vaginal irritation for 2 days. Has had minimal discharge. She is sexually active. She has a very low concern for the possibility of STI. She wonders if it's a yeast infection. No fevers no chills no abdominal pain. No burning with urination or UTI symptoms. - History of Current Complaint Chief Complaint: UCGU Stated Complaint: PERSONAL Time Seen by Provider: 12/31/18 07:23 Hx Last Menstrual Period: 12/17/18 Pain Intensity: 0 - Allergy/Home Medications Allergies/Adverse Reactions: Allergies Allergy/AdvReac Type Severity Reaction Status Date / Time escitalopram [From Lexapro] Allergy Shakes Verified 12/31/18 07:15 Home Medications: Home Medications Methenamine/Sodium Salicylate [Azo Urinary Tract Defense Tab] 1 tab PO ONCE [History Confirmed 12/31/18] PMH/Surg Hx/FS Hx/Imm Hx Previously Healthy: Yes - Surgical History Surgical History: Yes Surgery Procedure, Year, and Place: Appendectomy, 2010, [place] - Family History Known Family History: Negative: Cardiac Disease, Hypertension, Diabetes Family History: no reported cardio vascular issues in family lineage - Social History Alcohol Use: Occasionally Substance Use Type: Marijuana Substance Use Comment - Amount & Last Used: occasionally Smoking Status (MU): Never Smoked Tobacco - Immunization History Most Recent Influenza Vaccination: [id number] Vaccination Up to Date: Yes Review of Systems All Other Systems Reviewed And Are Negative: Yes Constitutional: Positive: Other - see hpi Skin: Positive: Negative Eyes: Positive: Negative ENT: Positive: Negative Respiratory: Positive: Negative Cardiovascular: Positive: Negative Gastrointestinal: Positive: Other - see hpi Genitourinary: Positive: Other - see hpi Motor: Positive: Negative Neurovascular: Positive: Negative Musculoskeletal: Positive: Negative Neurological: Positive: Negative Psychological: Positive: Negative Is Patient Immunocompromised?: No Physical Exam Triage Information Reviewed: Yes Appearance: Well-Appearing, No Pain Distress, Well-Nourished Vital Signs: Initial Vital Signs Temp 98.3 F 12/31/18 07:16 Pulse 80 12/31/18 07:16 Resp 14 12/31/18 07:16 BP 128/57 12/31/18 07:16 Pulse Ox 99 12/31/18 07:16 Vital Signs Reviewed: Yes Eye Exam: Normal Eyes: Positive: Conjunctiva Clear Neck: Positive: Supple Respiratory: Positive: Lungs clear, Normal breath sounds, No respiratory distress Cardiovascular: Positive: RRR Abdomen Description: Positive: Soft, Other: - Mild suprapubic tenderness to palpation. No rebound. BV and Geovanna sample was self collected. Bowel Sounds: Positive: Present Musculoskeletal: Positive: Strength Intact, ROM Intact Neurological: Positive: Alert, Muscle Tone Normal Psychological: Positive: Age Appropriate Behavior Skin Exam: Normal Course/Dx - Course Course Of Treatment: We'll treat for bacterial vaginitis and Geovanna. chlamydia bacterial vaginitis Geovanna and Trichomonas results are all pending. Patient is reevaluated not improving or worse. - Diagnoses Provider Diagnosis: Vaginitis Discharge ED - Sign-Out/Discharge Documenting (check all that apply): Patient Departure All imaging exams completed and their final reports reviewed: No Studies - Discharge Plan Condition: Stable Disposition: HOME Prescriptions: Fluconazole 150 MG TAB* [Diflucan 150 MG TAB*] 150 mg PO ONCE #2 tablet metroNIDAZOLE [Flagyl] 500 mg PO BID #14 tablet Patient Education Materials: Vaginitis (ED) Referrals: Elenita Plascencia MD [Primary Care Provider] - Additional Instructions: FOLLOW UP WITH YOUR DOCTOR IF NOT COMPLETELY IMPROVED. Your are being treated for both bacterial vaginitis and yeast infection. Lab results are pending. If there are any positives we'll call you with results. Feel free to call us in 2-3 days for final results if he has not heard from us. GET REEVALUATED SOONER IF NOT IMPROVING OR WORSE OR ANY QUESTIONS OR CONCERNS. - Billing Disposition and Condition Condition: STABLE Disposition: Home
--- NOTE | 2019-01-01 07:41 | UC ---
- Progress Note Progress Note: Treated for both vaginosis and geovanna--only the Geovanna is positive on testing. She can stop the use of metronidazole. Course/Dx - Diagnoses Provider Diagnoses: Vaginitis Discharge ED - Sign-Out/Discharge Documenting (check all that apply): Post-Discharge Follow Up All imaging exams completed and their final reports reviewed: No Studies - Discharge Plan Condition: Stable Disposition: HOME Prescriptions: Fluconazole 150 MG TAB* [Diflucan 150 MG TAB*] 150 mg PO ONCE #2 tablet metroNIDAZOLE [Flagyl] 500 mg PO BID #14 tablet Patient Education Materials: Vaginitis (ED) Referrals: Elenita Plascencia MD [Primary Care Provider] - Additional Instructions: FOLLOW UP WITH YOUR DOCTOR IF NOT COMPLETELY IMPROVED. Your are being treated for both bacterial vaginitis and yeast infection. Lab results are pending. If there are any positives we'll call you with results. Feel free to call us in 2-3 days for final results if he has not heard from us. GET REEVALUATED SOONER IF NOT IMPROVING OR WORSE OR ANY QUESTIONS OR CONCERNS. - Billing Disposition and Condition Condition: STABLE Disposition: Home
[2019-01-01 14:58] LABS: Chlamydia trachomatis NAA Positive (Negative); Neisseria gonorrhoeae (GC) NAA Negative (Negative)
--- NOTE | 2019-01-01 16:36 | UC ---
- Progress Note Progress Note: neg gonorrhea + chlamydia Please contact pt zithromax sent to pharmacy recommend informing partner anticipate call form health dept Course/Dx - Diagnoses Provider Diagnoses: Vaginitis Discharge ED - Sign-Out/Discharge Documenting (check all that apply): Post-Discharge Follow Up All imaging exams completed and their final reports reviewed: No Studies - Discharge Plan Condition: Stable Disposition: HOME Prescriptions: Azithromycin TAB* [Zithromax TAB (Z-RJ) 250 mg #6 tabs] 1,000 mg PO ONCE #4 tab Fluconazole 150 MG TAB* [Diflucan 150 MG TAB*] 150 mg PO ONCE #2 tablet metroNIDAZOLE [Flagyl] 500 mg PO BID #14 tablet Patient Education Materials: Vaginitis (ED) Referrals: Elenita Plascencia MD [Primary Care Provider] - Additional Instructions: FOLLOW UP WITH YOUR DOCTOR IF NOT COMPLETELY IMPROVED. Your are being treated for both bacterial vaginitis and yeast infection. Lab results are pending. If there are any positives we'll call you with results. Feel free to call us in 2-3 days for final results if he has not heard from us. GET REEVALUATED SOONER IF NOT IMPROVING OR WORSE OR ANY QUESTIONS OR CONCERNS. - Billing Disposition and Condition Condition: STABLE Disposition: Home
== END 2018-12-31 08:02 | disposition home or self-care (01) ==
LOC: UCCORT 07:07
DX: N76.0 Acute vaginitis (principal); B37.3 Candidiasis of vulva and vagina; Z88.8 Allergy status to other drugs, medicaments and biological substances
CPT/HCPCS: 81003; 84702; 87480; 87491; 87510; 87591; 87660; 99212; G0463

== ENCOUNTER 2019-01-09 10:46 | Emergency (ER) | payer OTHER ==
[2019-01-09 11:44] VITALS: BP 125/85
--- NOTE | 2019-01-09 12:41 | UC ---
Respiratory Complaint HPI - HPI Summary HPI Summary: Pt presents with c/o right side rib pain that began " a few days ago." Pt states that she has had URI like symptoms and continues to cough with exertion and recumbent position. Pt denies SOB, and denies hx PE. Pt states that pain is reproducible with palpation. - History of Current Complaint Chief Complaint: UCGeneralIllness Stated Complaint: RIGHT RIB PAIN Time Seen by Provider: 01/09/19 12:33 Hx Obtained From: Patient Hx Last Menstrual Period: 12/12/18 ?: No Onset/Duration: Gradual Onset, Lasting Days, Still Present Timing: Intermittent Episodes Severity Initially: Mild Severity Currently: Moderate Pain Intensity: 8 Character: Cough: Nonproductive Aggravating Factors: Exertion, Deep Breaths, Recumbent Position Alleviating Factors: Nothing Associated Signs And Symptoms: Positive: URI - Risk Factors Pulmonary Embolism Risk Factors: Oral Contraceptives Cardiac Risk Factors: Negative Pseudomonas Risk Factors: Negative Tuberculosis Risk Factors: Negative - Allergies/Home Medications Allergies/Adverse Reactions: Allergies Allergy/AdvReac Type Severity Reaction Status Date / Time escitalopram [From Lexapro] Allergy Shakes Verified 01/09/19 11:38 PMH/Surg Hx/FS Hx/Imm Hx Previously Healthy: Yes - Surgical History Surgical History: Yes Surgery Procedure, Year, and Place: Appendectomy, 2010, [place] - Family History Known Family History: Negative: Cardiac Disease, Hypertension, Diabetes Family History: no reported cardio vascular issues in family lineage - Social History Occupation: Student Lives: With Family Alcohol Use: Occasionally Substance Use Type: Marijuana Substance Use Comment - Amount & Last Used: daily Smoking Status (MU): Light Every Day Tobacco Smoker Amount Used/How Often: 1-2 cigars/day Have You Smoked in the Last Year: Yes - Immunization History Most Recent Influenza Vaccination: [id number] Vaccination Up to Date: Yes Review of Systems All Other Systems Reviewed And Are Negative: Yes Constitutional: Positive: Negative Skin: Positive: Negative Eyes: Positive: Negative ENT: Positive: Negative Respiratory: Positive: Cough Cardiovascular: Positive: Chest Pain - right side lower rib cage pain with palpation Gastrointestinal: Positive: Negative Genitourinary: Positive: Negative Motor: Positive: Negative Musculoskeletal: Positive: Myalgia - right anterior lower rib pain Neurological: Positive: Negative Psychological: Positive: Negative Is Patient Immunocompromised?: No Physical Exam Triage Information Reviewed: Yes Appearance: Well-Appearing, Pain Distress - with PE and palpation of right lower rib cage Vital Signs: Initial Vital Signs Temp 98 F 01/09/19 11:39 Pulse 95 01/09/19 11:39 Resp 16 01/09/19 11:39 BP 125/85 01/09/19 11:39 Pulse Ox 100 01/09/19 11:39 Vital Signs Reviewed: Yes Eye Exam: Normal ENT: Positive: Hearing grossly normal Dental Exam: Normal Neck exam: Normal Respiratory Exam: Normal Respiratory: Positive: Normal breath sounds, No respiratory distress Cardiovascular Exam: Normal Musculoskeletal Exam: Normal Neurological Exam: Normal Psychological Exam: Normal Skin Exam: Normal Respiratory Course/Dx - Course Course Of Treatment: I discussed xray results from 01/07/19, they were NAD Pt verbalized understanding and agreed to plan of care. - Differential Dx/Diagnosis Differential Diagnosis/HQI/PQRI: Lower Resp Infection, Pulmonary Embolism Provider Diagnosis: Costochondral chest pain Discharge ED - Sign-Out/Discharge Documenting (check all that apply): Patient Departure All imaging exams completed and their final reports reviewed: No Studies - Discharge Plan Condition: Stable Disposition: HOME Prescriptions: Albuterol HFA INHALER* [Ventolin HFA Inhaler*] 1 - 2 puff INH Q4H PRN #1 mdi PRN Reason: Sob/Wheezing predniSONE TAB* [Deltasone 10 MG TAB*] 30 mg PO DAILY #12 tab Patient Education Materials: Costochondritis (ED), Safe Use of NSAIDs (ED), Chest Wall Pain (ED) Referrals: Elenita Plascencia MD [Primary Care Provider] - If Needed Additional Instructions: Please follow up with your PCP as needed. If your symptoms worsen please go to the closest emergency room as soon as possible. - Billing Disposition and Condition Condition: STABLE Disposition: Home
== END 2019-01-09 12:55 | disposition home or self-care (01) ==
LOC: UCCORT 10:46
DX: R07.89 Other chest pain (principal); M79.10 Myalgia, unspecified site; F17.290 Nicotine dependence, other tobacco product, uncomplicated; Z88.8 Allergy status to other drugs, medicaments and biological substances
CPT/HCPCS: 99212; G0463